=== PATIENT | female | born 1995 | race Two or more races ===

== ENCOUNTER 2024-10-16 18:49 | Emergency (ER) | payer MEDICAID, SELFPAY ==
[2024-10-16 19:29] VITALS: BP 158/78; PULSE 89; RESP 18; TEMP 36.9; O2SAT 96; BMI 42.3
--- NOTE | 2024-10-16 19:39 | EDNOTE_ITS ---
<Statement entered by Maggi Huizar MD - 10/23/24 17:50> As co-signing physician, I was present and available for consult prn. I concur with the plan and care as documented by the midlevel provider. ED OB Contraction Preg RMI/HPI General Chief complaint: Vaginal Bleeding Stated complaint: SPOTTING, CRAMPING, BACK PAIN @ 6WKS Time Seen by Provider: 10/16/24 19:27 Arrival date/time: 10/16/24 18:49 29-year-old female A4 approximately 6 weeks gestation reports with complaints of vaginal spotting that began this afternoon. Patient states she then developed lower back pain but denies any dysuria urinary urgency or frequency nausea vomiting fever or chills. Patient also complains of pelvic cramping. She denies taking any medication for symptoms Limitations: no limitations Related Data Home Medications ?Medication ?Instructions ?Recorded ?Confirmed Vitamin * 1 tab PO QDAY #0 tabs 09/06/17 03/04/18 Allergies Allergy/AdvReac Type Severity Reaction Status Date / Time No Known Allergies Allergy Unverified 10/16/24 18:50 Review of Systems Constitutional Constitutional: Denies chills, Denies fever(s) and Denies headache(s) ENT Ears, Nose, Mouth, and Throat: Denies dizziness and Denies headache(s) Genitourinary Genitourinary: Reports abnormal menses and Reports pelvic pain Musculoskeletal Musculoskeletal: Reports back pain and Denies myalgias Integumentary/Breasts Skin/Breast: Denies rash and Denies wounds Neurologic Neurologic: Denies dizziness and Denies headache(s) Hematologic/Lymphatic Hematologic/Lymphatic: Denies easy bleeding and Denies easy bruising Past Medical History Past Medical History CARDIAC: Negative Congestive Heart Failure RESPIRATORY: Negative Chronic Obstructive Pulmonary Disease (COPD) GENITOURINARY: Negative Renal Disease MUSCULOSKELETAL: Positive Fractures (broken arm age 5 or 6) ENDOCRINE: Negative Diabetes Mellitus Type 1 or Diabetes Mellitus Type 2 Surgical History SURGICAL: Negative Section Social History SMOKING STATUS: Never smoker ED Exam General Limitations: Present no limitations General appearance: Present alert and in no apparent distress Abdominal Exam Abdominal exam: Present soft and normal bowel sounds External exam: Present normal external exam; Absent erythema Speculum exam: Present normal speculum exam; Absent vaginal discharge, cervical discharge or vaginal bleeding Bimanual exam: Present normal bimanual exam; Absent cervical motion tenderness Extremities Exam Extremities exam: Present normal inspection and full ROM Back Exam Back exam: Present normal inspection and full ROM Neurological Exam Neurological exam: Present alert, oriented X3 and CN II-XII intact Psychiatric Psychiatric exam: Present normal affect and normal mood Skin Skin exam: Present warm, dry, intact and normal color Course Course Course Narrative: 29-year-old female A4 approximately 6 weeks gestation reports with complaints of vaginal spotting that began this afternoon. Urinalysis is negative for evidence of infection GC pending beta hCG of 4038 and uterine ultrasound indicative of a viable 5-week 5-day intrauterine gestation. Differential diagnosis includes implantation of bleeding versus threatened versus UTI. Patient is currently stable nontoxic-appearing with stable vital signs she will be discharged home advised to follow-up in 2 days with primary care provider for hCG repeat. Quality Measures none Orders Category Date Time Status Pelvic Exam X1 Care 10/16/24 19:38 Active US OB transvaginal Stat Exams 10/16/24 20:55 Completed Beta HCG,Quantitative Stat Lab 10/16/24 21:20 Completed Chlamydia/GC/TV - PCR Stat Lab 10/16/24 Ordered UA, C/S IF [Urinalysis, C/S if Indicated] Stat Lab 10/16/24 20:11 Completed Vital Signs Vital signs: Vital Signs Temperature 98.5 F 10/16/24 19:29 Pulse Rate 89 10/16/24 19:29 Respiratory Rate 18 10/16/24 19:29 Blood Pressure 158/78 H 10/16/24 19:29 Pulse Oximetry (%) 96 10/16/24 19:29 Oxygen Delivery Method Room Air 10/16/24 19:29 Vaginal Bleeding Patient data External records reviewed:: None Clinical information provided by:: patient Social determinants that could affect healthcare access:: none Patient has the following chronic illnesses:: none How is presenting disease/condition affected by chronic disease/condition?: no chronic disease Evaluation data The following diagnostics were reviewed and interpreted by me:: lab results and radiology exam(s) Lab and/or radiology exams considered but not ordered:: none Interpretation Summary: Viable intrauterine gestational Medications / Prescriptions Medications or Prescriptions considered but not ordered:: none Medication administrations:: none Consultations Consultation(s) initiated? (list below): No Diagnosis Vaginal Bleeding Differential Diagnosis: threatened , vaginal bleeding and other (Implantation of bleeding) Most likely diagnosis given after review of the tests above:: Bleeding during early Admission Indicated Admission indicated?: not indicated Admission Request Was there a request for admission?: No Disposition Plan Disposition Plan: Discharge Discharge Attestation Discharge Attestation: The patient and all family members were given an opportunity to ask questions and understood the discharge instructions. Discharge instructions specifically effects, indications for sooner follow up or return to the emergency department, and the expected course of current diagnosis. Patient condition: Stable Discharge Plan Plan Patient Disposition: HOME (Self Care) Prescriptions/Referrals Prescriptions/Med Rec: No Action Vitamin * 1 EACH tablet 1 tab PO QDAY Qty: 0 Referrals: Raciel Scott MD [Primary Care Provider] - In 1 week Problem List Clinical Impression: Bleeding in early Patient/Caregiver Discharge Instructions Education Materials: Bleeding During Early Additional Instructions: Follow-up with your [employer] in 2 days to have your hCG levels were taken. Print Language: Citizen Of [place] Stand Alone Forms: Hermila Award Info., Patient Portal Info Letter
--- NOTE | 2024-10-16 20:55 | XR_ITS ---
Examination: OB Transvaginal ultrasound of the pelvis, complete Technique: Transvaginal sonographic images pelvis performed using ochoa scale imaging Exam date and time: October 16, [id number] hrs. Indications: Early by history with vaginal bleeding and cramping beginning 3 days ago Findings: Uterus 8.7 x 4.1 x 5.3 cm pole 0.2 cm corresponds to 5 weeks 5 day gestational age Cardiac motion 93 BPM Right ovary 2.6 x 3.6 cm arterial flow Left ovary 2.8 x 2.3 cm arterial flow Impression: Viable intrauterine gestation 5 weeks 5 days
[2024-10-16 21:01] LABS: Collection Type, Urine Clean Catch
[2024-10-16 21:10] LABS: Bilirubin,Urine Negative (Negative); Blood,Urine Negative (Negative); Clarity,Urine Clear (Clear/Hazy); Color,Urine Lt-Yellow (Lt Yel-Yel); Culture Indicated,Urine Not Indicated; Glucose, Urine Negative (Negative); Ketones,Urine Negative (Negative); Leukocyte Esterase,Urine Negative (Negative); Nitrite,Urine Negative (Negative); Protein,Urine Negative (Neg - Trace); RBC,Urine 3 /hpf (0-3); Specific Gravity,Urine 1.025 (1.001-1.035); Squamous Epithelial Cell,Urine 2 /hpf (0-5); Urobilinogen,Urine Negative mg/dL (0.0-1.0); WBC,Urine < 1 /hpf (0-5)
[2024-10-16 22:08] LABS: Beta HCG,Quantitative 4038 mIU/mL (<5.0)
[2024-10-17 09:26] LABS: Chlamydia trachomatis PCR Negative (Not Detect); Neisseria Gonorrhoeae DNA PCR Negative (Not Detect); Trichomonas Negative (Negative)
== END 2024-10-16 23:10 | disposition home or self-care (01) ==
PROVIDERS: Physician Assistant; Emergency Provider Emergency Medicine; PCP Family Medicine
DX: O20.9 Hemorrhage in early pregnancy, unspecified (principal); Z3A.01 Less than 8 weeks gestation of pregnancy
CPT/HCPCS: 36415; 76817; 81001; 84702; 87491; 87591; 87661; 99284

== ENCOUNTER 2024-10-18 17:54 | Emergency (ER) | payer MEDICAID, SELFPAY ==
[2024-10-18 18:38] VITALS: BP 136/85; PULSE 74; RESP 18; TEMP 37.2; O2SAT 97; BMI 43.8
[2024-10-18 19:03] LABS: Basophils # (Auto) 0.1 Thou/mm3 (0.0-0.2); Basophils % (Auto) 1 % (0-2.5); Eosinophils # (Auto) 0.4 Thou/mm3 (0.0-0.5); Eosinophils % (Auto) 4 % (0-10); Hematocrit 35.4 % (36.0-46.0); Hemoglobin 11.8 g/dL (12.0-16.0); Immature Granulocytes % (Auto) 1 % (0-0); Immature Granulocytes Auto 0.07 Thou/mm3 (0.00-0.00); Lymphocytes # (Auto) 2.4 Thou/mm3 (1.0-4.8); Lymphocytes % (Auto) 21 % (10-50); Mean Corpuscular HGB Conc 33.3 g/dl (31.0-37.0); Mean Corpuscular Hemoglobin 25.9 pg (25.0-35.0); Mean Corpuscular Volume 78 fL (80-100); Monocytes # (Auto) 0.5 Thou/mm3 (0.0-0.8); Monocytes % (Auto) 5 % (0-12); Neutrophils # (Auto) 7.7 Thou/mm3 (1.8-7.7); Neutrophils % (Auto) 69 % (37-80); Nucleated Red Blood Cell % 0 /100 WBC (0); Platelet Count 305 Thou/mm3 (140-440); RDW Standard Deviation 40.6 fL (36.4-46.3); Red Blood Count 4.56 Miln/mm3 (4.00-5.20); White Blood Count 11.1 Thou/mm3 (3.6-11.0)
[2024-10-18 19:29] LABS: Alanine Aminotransferase 22 U/L (10-49); Albumin, Serum 4.7 gm/dL (3.5-5.0); Albumin/Globulin Ratio 1.7 (1.2-2.2); Alkaline Phosphatase 78 U/L (46-116); Anion Gap 7 (7-16); BUN/Creatinine Ratio 17 Ratio (12-20); Bilirubin,Total 0.4 mg/dL (0.3-1.2); Blood Urea Nitrogen 10 mg/dL (9-23); Calcium 9.4 mg/dL (8.3-10.6); Calcium (Corrected) 9.4 mg/dL (8.5-10.1); Carbon Dioxide 24.9 mMol/L (20.0-31.0); Chloride 102 mMol/L (98-107); Creatinine (Component) 0.6 mg/dL (0.6-1.3); Estimated Creatinine Clearance 191.7 mL/min (>60); Globulin 2.8 gm/dL (2.3-3.5); Glucose 89 mg/dL (74-106); Osmolality,Calculated 266 (275-295); Sodium 134 mMol/L (136-145); Total Protein 7.5 gm/dL (5.7-8.2); eGFR > 60 See Note
--- NOTE | 2024-10-18 19:40 | PD.EDVAGBL ---
ED OB Contraction Preg RMI/HPI General Chief complaint: Recheck/Abnormal Lab/Rx Stated complaint: BETA HCG TESTING. STATES TOLD TO COME BACK Time Seen by Provider: 10/18/24 18:45 Arrival date/time: 10/18/24 17:54 29F at approximately 6 weeks and with no significant PMH presents to ED with several days of vaginal bleeding and pelvic pain. Patient was here 2 days ago for this with normal IUP in [place]. Counseled to return in 2 days for repeat HCG testing. Limitations: no limitations Related Data Home Medications ?Medication ?Instructions ?Recorded ?Confirmed Vitamin * 1 tab PO QDAY #0 tabs 09/06/17 03/04/18 Allergies Allergy/AdvReac Type Severity Reaction Status Date / Time No Known Allergies Allergy Unverified 10/18/24 17:55 Review of Systems Review of Systems Systems Reviewed: All systems reviewed, normal except as documented Constitutional Constitutional: Reports system reviewed and no additional complaints, except as documented, Denies fever(s) and Denies headache(s) ENT Ears, Nose, Mouth, and Throat: Denies disequilibrium and Denies headache(s) Cardiovascular Cardiovascular: Reports system reviewed and no additional complaints, except as documented, Denies chest pain and Denies dyspnea Respiratory Respiratory: Reports system reviewed and no additional complaints, except as documented, Denies cough and Denies dyspnea Gastrointestinal Gastrointestinal: Reports system reviewed and no additional complaints, except as documented, Denies abdominal pain, Denies nausea and Denies vomiting Genitourinary Genitourinary: Reports as per HPI, Reports abnormal vaginal bleeding and Reports pelvic pain Neurologic Neurologic: Reports system reviewed and no additional complaints, except as documented, Denies confusion, Denies disequilibrium and Denies headache(s) Psychiatric Psychiatric: Denies confusion Past Medical History Past Medical History CARDIAC: Negative Congestive Heart Failure RESPIRATORY: Negative Chronic Obstructive Pulmonary Disease (COPD) GENITOURINARY: Negative Renal Disease MUSCULOSKELETAL: Positive Fractures (broken arm age 5 or 6) ENDOCRINE: Negative Diabetes Mellitus Type 1 or Diabetes Mellitus Type 2 Surgical History SURGICAL: Negative Section Social History SMOKING STATUS: Never smoker ED Exam General Limitations: Present no limitations General appearance: Present alert and in no apparent distress Head Head exam: Present atraumatic Eye Eye exam: Present normal appearance, PERRL and EOMI ENT ENT exam: Present normal exam, normal oropharynx and mucous membranes moist Neck Neck exam: Present normal inspection, full ROM and trachea midline Chest Chest inspection: Present normal inspection and symmetric chest wall rise Respiratory Respiratory exam: Present normal lung sounds bilaterally Cardiovascular Cardiovascular exam: Present regular rate, normal rhythm and normal heart sounds Abdominal Exam Abdominal exam: Present soft and normal bowel sounds Extremities Exam Extremities exam: Present normal inspection and full ROM Back Exam Back exam: Present normal inspection and full ROM Neurological Exam Neurological exam: Present alert, oriented X3 and CN II-XII intact Psychiatric Psychiatric exam: Present normal affect and normal mood Skin Skin exam: Present warm, dry, intact and normal color Course Quality Measures none Orders Category Date Time Status ABO/RH Type Stat Lab 10/18/24 18:50 Completed Beta HCG,Quantitative Stat Lab 10/18/24 18:50 Completed CBC Stat Lab 10/18/24 18:50 Completed CMP [Comprehensive Metabolic Panel] Stat Lab 10/18/24 18:50 Completed Vital Signs Vital signs: Vital Signs Temperature 98.9 F 10/18/24 18:38 Pulse Rate 74 10/18/24 18:38 Respiratory Rate 18 10/18/24 18:38 Blood Pressure 136/85 H 10/18/24 18:38 Pulse Oximetry (%) 97 10/18/24 18:38 Oxygen Delivery Method Room Air 10/18/24 18:38 O2 at 97% on RA and WNLs Vaginal Bleeding MDM Narrative MDM Narrative: 29F at approximately 6 weeks and with no significant PMH presents to ED with several days of vaginal bleeding and pelvic pain. Patient was here 2 days ago for this with normal IUP in [place]. Counseled to return in 2 days for repeat HCG testing. Physical exam reveals no pelvic tenderness. Patient is afebrile, calm, and alert. Minimal leukocytosis and anemia. Beta HCG doubled from 4k to 8k. O+. CMP unremarkable. Patient data External records reviewed:: [facility] previous records Clinical information provided by:: patient Social determinants that could affect healthcare access:: none Patient has the following chronic illnesses:: none How is presenting disease/condition affected by chronic disease/condition?: no chronic disease Evaluation data The following diagnostics were reviewed and interpreted by me:: lab results Lab and/or radiology exams considered but not ordered:: ordered Interpretation Summary: above Medications / Prescriptions Medications or Prescriptions considered but not ordered:: not ordered Medication administrations:: n/a Consultations Consultation(s) initiated? (list below): No Diagnosis Vaginal Bleeding Differential Diagnosis: missed , threatened , dysfunctional uterine bleeding, menometrorrhagia, incomplete , ectopic without intrauterine , vaginal bleeding and other (bleeding in early ) Most likely diagnosis given after review of the tests above:: bleeding in early Admission Indicated Admission indicated?: not indicated Admission Request Was there a request for admission?: No Disposition Plan Disposition Plan: Discharge Discharge Attestation Discharge Attestation: The patient and all family members were given an opportunity to ask questions and understood the discharge instructions. Discharge instructions specifically effects, indications for sooner follow up or return to the emergency department, and the expected course of current diagnosis. Patient condition: Stable Discharge Plan Plan Patient Disposition: HOME (Self Care) Disposition Comment: Stable Prescriptions/Referrals Prescriptions/Med Rec: No Action Vitamin * 1 EACH tablet 1 tab PO QDAY Qty: 0 Problem List Clinical Impression: Bleeding in early Patient/Caregiver Discharge Instructions Additional Instructions: Please follow-up with PCP/OBGYN within 24-48 hours and return immediately if symptoms worsen. Print Language: Romansh Stand Alone Forms: Patient Portal Info Letter ANNE/EMA Supervising Physician RICHARD Supervising Physician: Dr. Benitez
[2024-10-18 19:47] LABS: Aspartate Amino Transferase 14 U/L (0-34); Beta HCG,Quantitative 8040 mIU/mL (<5.0)
== END 2024-10-18 20:08 | disposition home or self-care (01) ==
LOC: SERX 20:42
PROVIDERS: Physician Assistant; Emergency Provider Emergency Medicine
DX: O20.9 Hemorrhage in early pregnancy, unspecified (principal); Z3A.01 Less than 8 weeks gestation of pregnancy
CPT/HCPCS: 36415; 80053; 84702; 85025; 86900; 86901; 99283

== ENCOUNTER 2025-04-18 08:18 | Outpatient (AMB) | payer MEDICAID, SELFPAY ==
--- NOTE | 2025-04-18 08:25 | AMB.OBINITIA ---
Vital Signs 04/18/25 08:41 Height 1.7 m Height Method Stated Weight 124.795 kg Weight Measurement Method Standing Scale BMI 43.0 BP 135/86 H Blood Pressure Source Automatic Cuff Blood Pressure Location Right Upper Arm Position Sitting Respiration 17 Pulse 75 Pulse Source Monitor Temp 97.8 F Temp Source Temporal Artery Scan Pulse Oximetry (%) 98 Oxygen Delivery Method Room Air Allergies/Home Meds Allergies & Medications Allergies No Known Allergies Allergy (Verified 04/18/25 08:43) Intake Visit Data Collection New Patient or Established: Established Patient (seen at [facility] within 3 years) Reason for Visit:: OB TRANSFER Seen by Clinical Staff ONLY (RN/MA): No Ventilation Equipment Tender Required: No Do You Feel Safe at Home: Yes Authorities Contacted: N/A PCP or OBGYN visit in last 3 months: No Hx Now: Yes Are you currently on any form of Control: No Pain Present Currently: No Pain Scale Used: Lee-Teresa/Numerical Pain scale:: 0 Smoking Status Smoking Status: Never smoker Questionnaires Covid-19 Vaccine Questionnaire Has patient been vacinated for Covid-19 Have you been vacinated for Covid-19: No PHQ-9 PHQ-2 Over the last 2 weeks, how often have you been bothered by any of the following problems? 1. Little interest or pleasure in doing things: not at all 2. Feeling down, depressed, or hopeless: not at all Total score: 0 PHQ-9 3. Trouble falling or staying asleep, or sleeping too much: Not at all 4. Feeling tired or having little energy: Not at all 5. Poor appetite or overeating: Not at all 6. Feeling bad about yourself - or that you are a failure or have let yourself or your family down: Not at all 7. Trouble concentrating on things, such as reading the newspaper or watching television: Not at all 8. Moving or speaking so slowly that other people could have noticed? - Or the opposite - being so fidgety or restless that you have been moving around a lot more than usual: not at all 9. Thoughts that you would be better off or of hurting yourself in some way: Not at all Total score: 0 If you checked off any problems, how difficult have these problems made it for you to do your work, take care of things at home, or get along with other people?: not difficult at all Source: Developed by Drs. Yoel Hussein, Kika Woodard, Cleveland Bello and colleagues, with an educational oscar from [employer]. Depression screen completed yes Social History Living Situation History Marital Status: Lives With: Family Housing: House Tobacco History Smoking Status: Never smoker Alcohol History Alcohol Intake: Former Alcohol Intake Frequency: holidays/special occasions only Domestic Abuse History Do You Feel Safe at Home: Yes History of Present Illness HPI Narrative 30 yo at 33 week transfer from [facility]. 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 last ,normal /child, this normal anatomy,LMP 08/31/24. EDC 06/07/25. sure dates. 01/08/24 sono: 17w. EDC 06/14/25. 02/08/25 sono: 21.25. all showed normal anatomy. good growth. EFW 58%. Biggest baby: 9-10. No PMH/elevated BMI, no social habit,no surgery. no PTL complaints, fetus active. no leaking or bleeding. O+,abs-,rpr;;nr, rub NI, hbsag-,HIV-, GC/CT-HBSAG-,HIV-, HC-, 1hr gtt wnl, AFP/NIPT/carrier screen-. TDAP given PRICK STITCHER: Past Medical History Past Medical History: No Hx Renal Disease, No Hx Diabetes Mellitus Type 1 and No Hx Diabetes Mellitus Type 2 OB Initial Visit OB Flowsheet OB Flowsheet Initial Weight: Not Recorded Date <del>?</del> EGA Weight BP Alb Glu CTX Pres Fundal ht FHR Mov Dilation Station Effacement Hx Notes Visit Note 04/18/25 <del>?</del> 31w 2d 124.795 kg 135/86 absent cephalic 33 145 active 30 yo . sure dates. EDC by LMP:06/07. elevated BMI, last mfm was 6/3,EFW: 4lb 1/2, normal anatomy. no PTL complaints, no VB,no leaking, report good FM+ 30 yo . sure dates. EDC by LMP:06/07. elevated BMI, last mfm was 6/3,EFW: 4lb 11/16, normal anatomy. no PTL complaints, no VB,no leaking, report good FM+, TDAP given review fkv bid, increase fluid, discuss PTL precaution, schedule week NST/BPP. call for sono results NV review fkc bid, increase fluid, discuss PTL precaution, schedule week NST/BPP. call for sono results NV Menstrual History Menstrual reliability: definite Flow: normal Menstrual regularity: regular Monthly: Yes Age at menarche: 11 On control pills at conception: No Date of positive home test: 09/26/24 Associated symptoms (LMP): Reports fatigue and bloating OB History : 6 Para: 1 Hx # Pregnancies: 0 Hx Total # of Abortions (Spontaneous & Elective): 4 # of Living Children: 1 Delivery History 1st : Child's name: HANNAH ISABEL date: 03/05/18 sex: male Gestational age at delivery (weeks): 40 Delivery type: vaginal weight (lbs): 4082.331 g weight (oz): 10 kg History of depression before or after : No Infection History & Risk Evaluation History of STDs: none HIV risk evaluation: low risk Hepatitis B risk evaluation: low risk Patient or partner has history of Genital Herpes: No Varicella/chicken pox status: immunized Genetic Screening & History Genetic Screening/Teratology Counseling - Includes patient, baby's father, or anyone in either family with: 1. Patient's age 35 years or older as of estimated date of delivery: No 2. Thalassemia (Tunisian, Eritrean, Mediterranean, or Background); MCV less than 80: No 3. Neural Tube Defect (Meningomyelocele, Spina Bifida, or Anencephaly): No 4. Congenital Heart Defect: No 5. Down Syndrome: No 6. Juan Daniel-Sachs (Ashkenazi Buddhist, Cajun, Czech Isabella): No 7. José Miguel Disease (Ashkenazi Buddhist): No 8. Familial Dysautonomia (Ashkenazi Buddhist): No 9. Sickle Cell Disease or Trait (): No 10. Hemophilia or other blood disorders: No 11. Muscular Dystrophy: No 12. Cystic Fibrosis: No 13. Robert's Chorea: No 14. Mental Retardation/Autism: Yes (BABYS FATHER HAS FAMILY WITH ADHD, AND ADD) 15. Other inherited genetic or chromosomal disorder: No 16. Maternal Metabolic Disorder (EG,TYPE 1 Diabetes, PKU): No 17. Patient or baby's father had a child with defects not listed above: No 18. Recurrent loss or a stillbirth: No 19. Medications (including supplements, vitamins, herbs or otc drugs)/illicit/recreational drugs/alcohol since last menstrual period: Yes ( VITAMINS) 20. Any other: No Infection History 1. Live with someone with TB or exposed to TB: No 2. Rash or viral illness since last menstrual period: No 3. Hepatitis B,C: No Other (see comments) Source: [employer] Review of Systems Review of Systems Systems Reviewed: All systems reviewed, normal except as documented Constitutional Constitutional: Reports fatigue Gastrointestinal Gastrointestinal: Reports bloating Endocrine Endocrine: Reports fatigue Exam General Limitations: no limitations General Appearance: alert, in no apparent distress, comfortable, cooperative, healthy appearing, well developed and well groomed Head Head exam: atraumatic, normocephalic and normal inspection Chest Chest inspection: Present normal inspection and symmetric chest wall rise Resp Respiratory exam: Present normal lung sounds bilaterally Card Cardiovascular exam: Present regular rate, normal rhythm and normal heart sounds Abdominal Abdominal exam: Present soft and normal bowel sounds Psych Psychiatric exam: Present normal affect and normal mood Office Procedures OB Clinic LOC & Office Proc's Nursing/Assessment Patient Status: Established Patient OB Clinic Nursing Assessment: Medication Reconciliation, Update PMH in EMR and Vital Signs OB Clinic Coordination of Care: Complex Care and Chronic Disease 1-5, Consent,records obtained, informed consent, Education Simp Pt/Fam, Lab and Imaging orders and Staff clarify orders Special Needs: Heart tones Established Patient Charge Established Patient Point Assignment: 130 Established Patient Point Charge: EP Level 4 (120-155) Assessment & Plan Diagnosis / Problem List (1) Encounter for supervision of normal in multigravida in third trimester: Status: Acute (2) BMI (body mass index) 20.0-29.9: Status: Acute Plan discuss diet and weight gain, NST/BPP weekly, scheduled. discuss PTL precaution, increase fluid. FKC bid, continue PNV and iron, walk 40 minute daily. rtc 2 week OBC Additional Plan Follow Up: 2 Weeks (OBC)
[2025-04-18 08:41] VITALS: BP 135/86; PULSE 75; RESP 17; TEMP 36.6; O2SAT 98; BMI 43.0
== END 2025-04-18 08:57 | disposition home or self-care (01) ==
LOC: HODSOBC 08:18
PROVIDERS: Supervising Provider Obstetrics & Gynecology; Visit Provider Advanced Practice Midwife
DX: Z34.83 Encounter for supervision of other normal pregnancy, third trimester (principal); Z3A.31 31 weeks gestation of pregnancy
CPT/HCPCS: 99214; G0463

== ENCOUNTER 2025-05-02 10:56 | Outpatient (AMB) | payer MEDICAID, SELFPAY ==
[2025-05-02 11:27] VITALS: BP 132/84; PULSE 76; RESP 17; TEMP 36.6; O2SAT 97; BMI 43.3
--- NOTE | 2025-05-02 11:27 | OBCLNT_ITS ---
Vital Signs 05/02/25 11:27 Height 1.7 m Height Method Stated Weight 125.305 kg Weight Measurement Method Standing Scale BMI 43.3 BP 132/84 H Blood Pressure Source Automatic Cuff Blood Pressure Location Right Upper Arm Position Sitting Respiration 17 Pulse 76 Pulse Source Monitor Temp 97.8 F Temp Source Temporal Artery Scan Pulse Oximetry (%) 97 Oxygen Delivery Method Room Air Allergies/Home Meds Allergies & Medications Allergies No Known Allergies Allergy (Verified 05/02/25 11:28) Medication Reconciliation No Known Home Medications 05/02/25 [History Confirmed 05/02/25] Intake Visit Data Collection New Patient or Established: Established Patient (seen at [facility] within 3 years) Reason for Visit:: OBC Do You Feel Safe at Home: Yes Authorities Contacted: N/A PCP or OBGYN visit in last 3 months: Yes Smoking Status Smoking Status: Never smoker Questionnaires Covid-19 Vaccine Questionnaire Has patient been vacinated for Covid-19 Have you been vacinated for Covid-19: No PHQ-9 PHQ-2 Over the last 2 weeks, how often have you been bothered by any of the following problems? 1. Little interest or pleasure in doing things: not at all 2. Feeling down, depressed, or hopeless: not at all Total score: 0 PHQ-9 3. Trouble falling or staying asleep, or sleeping too much: Not at all 4. Feeling tired or having little energy: Not at all 5. Poor appetite or overeating: Not at all 6. Feeling bad about yourself - or that you are a failure or have let yourself or your family down: Not at all 7. Trouble concentrating on things, such as reading the newspaper or watching television: Not at all 8. Moving or speaking so slowly that other people could have noticed? - Or the opposite - being so fidgety or restless that you have been moving around a lot more than usual: not at all 9. Thoughts that you would be better off or of hurting yourself in some way: Not at all Total score: 0 If you checked off any problems, how difficult have these problems made it for you to do your work, take care of things at home, or get along with other people?: not difficult at all Source: Developed by Drs. Yoel Hussein, Kika BCleveland White and colleagues, with an educational oscar from [employer]. 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 sure dates. EDC by LMP:06/07. elevated BMI, last mfm was 6/3,EFW: 4lb 1/2, normal anatomy. no PTL complaints, no VB,no leaking, report good FM+ 30 yo . sure dates. EDC by LMP:06/07. elevated BMI, last mfm was 6/3,EFW: 4lb 1/2, normal anatomy. no PTL complaints, no VB,no leaking, report good FM+, TDAP given review fkv bid, increase fluid, discuss PTL precaution, schedule week NST/BPP. call for sono results NV review fkc bid, increase flu id, discuss PTL precaution, schedule week NST/BPP. call for sono results NV 05/02/25 -?-?-?-?-?-?-?-?-?-?-?-?- 33w 2d 125.305 kg 132/84 absent cephalic 33 14 5 active fetus active, no PTL complaints. denies LOF/Bleeding,UC. MFM f/u 05/29 keep appt with mfm for f/u, week NST/BPP pending, fkc bid, gbs nv, discuss ptl precaution, rtc 2 week obc ALMAS Calculator Estimated Delivery Date Method Current WG Current Estimate 06/18/25 Ultrasound #1 33w 2d Other Estimates 06/07/25 LMP (Certain) 34w 6d Notes Visit Date: 04/18/25 Last Updated by: Lesa Kay, ROSMERY 30 yo , lmp 08/31/24. edc 06/07/25. sure date(final). sono 01/08/25: 17w: 06/14/25. sono 02/08/25: 21.5 EDC 06/16/25. MFM sono: WNL. EFW: 58%, O+,abs- ,rpr::nr, rub:NI, hbsag-hiv-,hc-, gc/ct-, AFP/NIPT/carrier screen-, 1hr gtt:WNL, A1:5.3, /: sched NST/BPP Office Procedures OB Clinic LOC & Office Proc's Nursing/Assessment Patient Status: Established Patient OB Clinic Nursing Assessment: Medication Reconciliation, Update PMH in EMR and Vital Signs OB Clinic Coordination of Care: Complex Care and Chronic Disease 1-5, Consent,records obtained, informed consent, Education Simp Pt/Fam and Staff clarify orders Special Needs: Heart tones Established Patient Charge Established Patient Point Assignment: 115 Established Patient Point Charge: EP Level 3 (80-115) Assessment & Plan Diagnosis / Problem List (1) Encounter for supervision of high risk in third trimester, antepartum: Status: Acute (2) BMI (body mass index) 20.0-29.9: Status: Acute Plan discuss ptl precaution, fkc bid, wk NST/BPP pending. f/u MFM 05/29, hydrate. discuss ptl precaution, rtc 2 week GBS/OBC Additional Plan Follow Up: 2 Weeks (obc)
== END 2025-05-02 11:55 | disposition home or self-care (01) ==
LOC: HODSOBC 10:56
PROVIDERS: PCP Advanced Practice Midwife; Referring Provider Advanced Practice Midwife; Supervising Provider Advanced Practice Midwife; Visit Provider Advanced Practice Midwife
DX: O09.93 Supervision of high risk pregnancy, unspecified, third trimester (principal); Z3A.33 33 weeks gestation of pregnancy
CPT/HCPCS: 99213; G0463

== ENCOUNTER 2025-05-28 08:02 | Outpatient (RCR) | payer MEDICAID, SELFPAY ==
--- NOTE | 2025-05-14 08:26 | XR_ITS ---
Examination: Biophysical profile, ultrasound Date and time of exam: May 14, 2025 0837 hours INDICATIONS: Encounter for supervision of normal Technique: Multiple transabdominal sonographic images of the pelvis abdomen obtained. Attention is directed to the breathing movement, gross body movement, amniotic fluid volume and tone. Findings: Amniotic fluid index 10.8 cm Total biophysical profile is 8 of 8. breathing movement is 2. Gross body movement is 2. tone is 2. Qualitative amniotic fluid volume is 2 Impression: Biophysical profile is 8 of 8.
[2025-05-14 09:03] VITALS: BP 138/80; PULSE 80; RESP 16; TEMP 36.7
--- NOTE | 2025-05-17 08:11 | XR_ITS ---
Examination: Biophysical profile, ultrasound Date and time of exam: May 17, 2025 0826 hours INDICATIONS: Encounter for supervision of normal Technique: Multiple transabdominal sonographic images of the pelvis abdomen obtained. Attention is directed to the breathing movement, gross body movement, amniotic fluid volume and tone. Findings: Amniotic fluid index 8.0 cm Total biophysical profile is 8 of 8. breathing movement is 2. Gross body movement is 2. tone is 2. Qualitative amniotic fluid volume is 2 Impression: Biophysical profile is 8 of 8.
[2025-05-17 09:17] VITALS: BP 132/79; PULSE 84; RESP 16; TEMP 36.7
--- NOTE | 2025-05-21 08:13 | XR_ITS ---
Examination: Biophysical profile, ultrasound Date and time of exam: May 21, 2025 0826 hours INDICATIONS: Encounter for supervision of normal in third trimester Technique: Multiple transabdominal sonographic images of the pelvis abdomen obtained. Attention is directed to the breathing movement, gross body movement, amniotic fluid volume and tone. Findings: Amniotic fluid index 8.1 cm Total biophysical profile is 8 of 8. breathing movement is 2. Gross body movement is 2. tone is 2. Qualitative amniotic fluid volume is 2 Impression: Biophysical profile is 8 of 8.
[2025-05-21 08:52] VITALS: BP 130/79; PULSE 88; RESP 16; TEMP 36.7
--- NOTE | 2025-05-24 08:20 | XR_ITS ---
Examination: Biophysical profile, ultrasound Date and time of exam: May 24, 2025 0827 hours INDICATIONS: Maternal obesity, encounter for supervision of normal in multigravida Technique: Multiple transabdominal sonographic images of the pelvis abdomen obtained. Attention is directed to the breathing movement, gross body movement, amniotic fluid volume and tone. Findings: Amniotic fluid index 8.9 cm Total biophysical profile is 8 of 8. breathing movement is 2. Gross body movement is 2. tone is 2. Qualitative amniotic fluid volume is 2 Impression: Biophysical profile is 8 of 8.
[2025-05-24 09:08] VITALS: BP 124/79; PULSE 75; RESP 16; TEMP 36.8
--- NOTE | 2025-05-28 08:11 | XR_ITS ---
Examination: Biophysical profile, ultrasound Date and time of exam: May 28, 2025 0817 hours INDICATIONS: Maternal obesity complicating Technique: Multiple transabdominal sonographic images of the pelvis abdomen obtained. Attention is directed to the breathing movement, gross body movement, amniotic fluid volume and tone. Findings: Amniotic fluid index 6.7 cm Total biophysical profile is 8 of 8. breathing movement is 2. Gross body movement is 2. tone is 2. Qualitative amniotic fluid volume is 2 Impression: Biophysical profile is 8 of 8.
[2025-05-28 08:37] VITALS: BP 134/73; PULSE 80; RESP 16
[2025-05-28 10:07] LABS: Collection Type, Urine Clean Catch
[2025-05-28 10:16] LABS: Basophils # (Auto) 0.0 Thou/mm3 (0.0-0.2); Basophils % (Auto) 0 % (0-2.5); Eosinophils # (Auto) 0.2 Thou/mm3 (0.0-0.5); Eosinophils % (Auto) 2 % (0-10); Hematocrit 33.7 % (36.0-46.0); Hemoglobin 11.4 g/dL (12.0-16.0); Immature Granulocytes Auto 0.04 Thou/mm3 (0.00-0.00); Lymphocytes # (Auto) 2.2 Thou/mm3 (1.0-4.8); Lymphocytes % (Auto) 24 % (10-50); Mean Corpuscular HGB Conc 33.8 g/dl (31.0-37.0); Mean Corpuscular Hemoglobin 24.7 pg (25.0-35.0); Mean Corpuscular Volume 73 fL (80-100); Monocytes # (Auto) 0.5 Thou/mm3 (0.0-0.8); Monocytes % (Auto) 5 % (0-12); Neutrophils # (Auto) 6.2 Thou/mm3 (1.8-7.7); Neutrophils % (Auto) 68 % (37-80); Nucleated Red Blood Cell # 0.00 Thou/mm3 (0.00-0.00); Nucleated Red Blood Cell % 0 /100 WBC (0); Platelet Count 250 Thou/mm3 (140-440); RDW Standard Deviation 38.1 fL (36.4-46.3); Red Blood Count 4.62 Miln/mm3 (4.00-5.20); White Blood Count 9.2 Thou/mm3 (3.6-11.0)
[2025-05-28 10:35] LABS: INR 1.0 (0.9-1.3); Partial Thromboplastin Time 28.8 Seconds (22.0-36.0); Prothrombin Time 10.8 Seconds (9.0-12.2)
[2025-05-28 10:43] LABS: Alanine Aminotransferase 9 U/L (10-49); Albumin, Serum 3.8 gm/dL (3.5-5.0); Albumin/Globulin Ratio 1.4 (1.2-2.2); Alkaline Phosphatase 164 U/L (46-116); Anion Gap 12 (7-16); Aspartate Amino Transferase 21 U/L (0-34); BUN/Creatinine Ratio 10 Ratio (12-20); Bilirubin,Total 0.5 mg/dL (0.3-1.2); Blood Urea Nitrogen 6 mg/dL (9-23); Calcium 9.2 mg/dL (8.3-10.6); Calcium (Corrected) 9.4 mg/dL (8.5-10.1); Carbon Dioxide 20.3 mMol/L (20.0-31.0); Chloride 105 mMol/L (98-107); Creatinine (Component) 0.6 mg/dL (0.6-1.3); Globulin 2.7 gm/dL (2.3-3.5); Glucose 92 mg/dL (74-106); LDH (Lactate Dehydrogenase) 199 U/L (120-246); Osmolality,Calculated 271 (275-295); Potassium 3.7 mMol/L (3.4-5.1); Sodium 137 mMol/L (136-145); Total Protein 6.5 gm/dL (5.7-8.2); Uric Acid 6.2 mg/dL (3.1-7.8); eGFR > 60 See Note
[2025-05-28 10:59] LABS: Fibrinogen 624 mg/dL (175-375)
[2025-05-28 11:58] LABS: Bacteria,Urine 1+; Bilirubin,Urine Negative (Negative); Blood,Urine Negative (Negative); Clarity,Urine Clear (Clear/Hazy); Color,Urine Colorless (Lt Yel-Yel); Glucose, Urine Negative (Negative); Ketones,Urine Negative (Negative); Leukocyte Esterase,Urine Negative (Negative); Nitrite,Urine Negative (Negative); PH,Urine 6.0 (5.0-7.0); Protein,Urine Negative (Neg - Trace); RBC,Urine 1 /hpf (0-3); Specific Gravity,Urine 1.003 (1.001-1.035); Squamous Epithelial Cell,Urine < 1 /hpf (0-5); Urobilinogen,Urine Negative mg/dL (0.0-1.0); WBC,Urine 1 /hpf (0-5)
== END 2025-05-28 23:59 | disposition home or self-care (01) ==
LOC: S4S1 08:02
PROVIDERS: Referring Provider Advanced Practice Midwife; Visit Provider Advanced Practice Midwife
DX: O09.93 Supervision of high risk pregnancy, unspecified, third trimester (principal); Z3A.38 38 weeks gestation of pregnancy
CPT/HCPCS: 36415; 59025; 76819; 80053; 81001; 83615; 84550; 85025; 85384; 85610; 85730

== ENCOUNTER 2025-05-28 10:05 | Outpatient (AMB) | payer MEDICAID, SELFPAY ==
[2025-05-28 10:23] VITALS: BP 143/89; PULSE 70; RESP 17; TEMP 36.4; O2SAT 94; BMI 43.9
--- NOTE | 2025-05-28 10:23 | OBCLNT_ITS ---
Vital Signs 05/28/25 10:23 Height 1.7 m Height Method Measured Weight 127.176 kg Weight Measurement Method Standing Scale BMI 43.9 BP 143/89 H Blood Pressure Source Automatic Cuff Blood Pressure Location Right Upper Arm Position Sitting Respiration 17 Pulse 70 Pulse Source Monitor Temp 97.6 F Temp Source Temporal Artery Scan Pulse Oximetry (%) 94 L Oxygen Delivery Method Room Air Allergies/Home Meds Allergies & Medications Allergies No Known Allergies Allergy (Verified 05/28/25 10:24) Medication Reconciliation No Known Home Medications 05/02/25 [History Confirmed 05/28/25] Intake Visit Data Collection New Patient or Established: Established Patient (seen at [facility] within 3 years) Reason for Visit:: OBC Consent obtained for Telemed Visit: No Seen by Clinical Staff ONLY (RN/MA): No 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 1. Little interest or pleasure in doing things: not at all PHQ-9 8. Moving or speaking so slowly that other people could have noticed? - Or the opposite - being so fidgety or restless that you have been moving around a lot more than usual: not at all Source: Developed by Drs. Yoel Hussein, Kika Woodard, Cleveland Bello and colleagues, with an educational oscar from [employer]. 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 sure dates. EDC by LMP:06/07. elevated BMI, last mfm was 6/3,EFW: 4lb 1/2, normal anatomy. no PTL complaints, no VB,no leaking, report good FM+ 30 yo . sure dates. EDC by LMP:06/07. elevated BMI, last mfm was 6/3,EFW: 4lb 1/2, normal anatomy. no PTL complaints, no VB,no leaking, report good FM+, TDAP given review fkv bid, increase fluid, discuss PTL precaution, schedule week NST/BPP. call for sono results NV review fkc bid, increase flu id, discuss PTL precaution, schedule week NST/BPP. call for sono results NV 05/02/25 -?-?-?-?-?-?-?-?-?-?-?-?- 33w 2d 125.305 kg 132/84 absent cephalic 33 14 5 active fetus active, no PTL complaints. denies LOF/Bleeding,UC. MFM f/u 05/29 keep appt with mfm for f/u, week NST/BPP pending, fkc bid, gbs nv, discuss ptl precaution, rtc 2 week obc 05/28/25 -?-?-?-?-?-?-?-?-?-?-?-?- 37w 0d 127.176 kg 143/89 occasional cephalic 37 145 active 1 -3 50 denies PIH s/s, reports good fm, sve: soft/1/L/post, occ uc, no vb,no LOF. BPP 06/22 today, NST reactive. discuss labor pr ecaution, fkc bid. review PIH s/s and precaution. fkc bid. discuss danger s/s. consult with OB re BP, to [facility] 05/29, repeat BP, IOL if BP are elevated. discuss with patient. OBC 1 week ALMAS Calculator Estimated Delivery Date Method Current WG Current Estimate 06/18/25 Ultrasound #1 37w 0d Other Estimates 06/07/25 LMP (Certain) 38w 4d Notes Visit Date: 04/18/25 Last Updated by: Lesa Kay, ROSMERY 30 yo , lmp 08/31/24. edc 06/07/25. sure date(final). sono 01/08/25: 17w: 06/14/25. sono 02/08/25: 21.5 EDC 06/16/25. MFM sono: WNL. EFW: 58%, O+,abs-,rpr::nr, rub:NI, hbsag-hiv-,hc-, gc/ct-, AFP/NIPT/carrier screen-, 1hr gtt:WNL, A1:5.3, 6/: sched NST/BPP Office Procedures OB Clinic LOC & Office Proc's Nursing/Assessment Patient Status: Established Patient OB Clinic Nursing Assessment: Medication Reconciliation, Update PMH in EMR and Vital Signs OB Clinic Coordination of Care: Complex Care and Chronic Disease 1-5, Consent,records obtained, informed consent, Education Simp Pt/Fam and 4+ Authorizations needed Special Needs: Heart tones Established Patient Charge Established Patient Point Assignment: 130 Established Patient Point Charge: EP Level 4 (120-155) Assessment & Plan Diagnosis / Problem List (1) Encounter for supervision of high risk in third trimester, antepartum: Status: Acute (2) BMI (body mass index) 20.0-29.9: Status: Acute Plan discuss PIH s/s and precaution, discuss danger s/s. discuss fkc bid, hydrate and discuss labor precaution, consult with OB, to [facility] in am 7/15 for BP check, IOL if BP remain elevated Additional Plan Follow Up: 1 Week (obc)
== END 2025-05-28 11:06 | disposition home or self-care (01) ==
LOC: HODSOBC 10:05
PROVIDERS: PCP Advanced Practice Midwife; Referring Provider Advanced Practice Midwife; Supervising Provider Advanced Practice Midwife; Visit Provider Advanced Practice Midwife
DX: O09.93 Supervision of high risk pregnancy, unspecified, third trimester (principal); Z3A.37 37 weeks gestation of pregnancy
CPT/HCPCS: 99214; G0463

== ENCOUNTER 2025-05-29 10:19 | Inpatient (IN) | payer MEDICAID, SELFPAY ==
[2025-05-29] VITALS (66 sets, daily range): BP systolic 114–166; BP diastolic 56–94; PULSE 62–96; RESP 14–97; TEMP 36.9–37.1; O2SAT 96–99; BMI 43.9; BMI 46.5
--- NOTE | 2025-05-29 10:35 | XR_ITS ---
Examination: Complete OB ultrasound greater than 14 weeks Date and time of exam: May 29, 2025 1137 hours INDICATIONS: Diagnosis elevated blood pressure 2 days Findings: Viable intrauterine single fetus with single amniotic sac presentation cephalic spine anterior Cardiac motion 150 BPM Placenta fundal posterior grade 2 Umbilical cord insertion seen Amniotic fluid index 7.5 cm Mild left hydronephrosis Cervix 3.3 cm Ovaries obscured by bowel gas. Composite estimated gestational age based on BPD, head circumference, abdominal circumference, femur length is 37 weeks 2 days Estimated weight 3052 g. Survey of intracranial anatomy, spinal anatomy,, four-chamber heart performed with no abnormalities identified. Impression: Viable intrauterine gestation cephalic presentation.
[2025-05-29 11:19] LABS: Collection Type, Urine Clean Catch
[2025-05-29 11:32] LABS: Basophils # (Auto) 0.0 Thou/mm3 (0.0-0.2); Basophils % (Auto) 1 % (0-2.5); Eosinophils # (Auto) 0.1 Thou/mm3 (0.0-0.5); Eosinophils % (Auto) 2 % (0-10); Hematocrit 31.7 % (36.0-46.0); Hemoglobin 10.8 g/dL (12.0-16.0); Immature Granulocytes Auto 0.03 Thou/mm3 (0.00-0.00); Lymphocytes # (Auto) 2.0 Thou/mm3 (1.0-4.8); Lymphocytes % (Auto) 26 % (10-50); Mean Corpuscular HGB Conc 34.1 g/dl (31.0-37.0); Mean Corpuscular Hemoglobin 24.9 pg (25.0-35.0); Mean Corpuscular Volume 73 fL (80-100); Monocytes # (Auto) 0.3 Thou/mm3 (0.0-0.8); Monocytes % (Auto) 4 % (0-12); Neutrophils # (Auto) 5.0 Thou/mm3 (1.8-7.7); Neutrophils % (Auto) 67 % (37-80); Nucleated Red Blood Cell # 0.00 Thou/mm3 (0.00-0.00); Nucleated Red Blood Cell % 0 /100 WBC (0); Platelet Count 221 Thou/mm3 (140-440); RDW Standard Deviation 37.6 fL (36.4-46.3); Red Blood Count 4.34 Miln/mm3 (4.00-5.20); White Blood Count 7.5 Thou/mm3 (3.6-11.0)
[2025-05-29 11:54] LABS: Fibrinogen 567 mg/dL (175-375); INR 1.0 (0.9-1.3); Partial Thromboplastin Time 28.2 Seconds (22.0-36.0); Prothrombin Time 11.1 Seconds (9.0-12.2)
[2025-05-29 11:56] LABS: Alanine Aminotransferase 8 U/L (10-49); Albumin, Serum 3.5 gm/dL (3.5-5.0); Albumin/Globulin Ratio 1.4 (1.2-2.2); Alkaline Phosphatase 157 U/L (46-116); Anion Gap 12 (7-16); Aspartate Amino Transferase 17 U/L (0-34); BUN/Creatinine Ratio 10 Ratio (12-20); Bilirubin,Total 0.5 mg/dL (0.3-1.2); Blood Urea Nitrogen 6 mg/dL (9-23); Calcium 8.6 mg/dL (8.3-10.6); Calcium (Corrected) 9.0 mg/dL (8.5-10.1); Carbon Dioxide 20.2 mMol/L (20.0-31.0); Chloride 106 mMol/L (98-107); Creatinine (Component) 0.6 mg/dL (0.6-1.3); Estimated Creatinine Clearance 190.3 mL/min (>60); Globulin 2.5 gm/dL (2.3-3.5); Glucose 154 mg/dL (74-106); LDH (Lactate Dehydrogenase) 168 U/L (120-246); Osmolality,Calculated 276 (275-295); Potassium 3.6 mMol/L (3.4-5.1); Sodium 138 mMol/L (136-145); Total Protein 6.0 gm/dL (5.7-8.2); Uric Acid 6.9 mg/dL (3.1-7.8); eGFR > 60 See Note
[2025-05-29 12:08] LABS: Bacteria,Urine 3+; Bilirubin,Urine Negative (Negative); Blood,Urine Negative (Negative); Color,Urine Yellow (Lt Yel-Yel); Glucose, Urine Negative (Negative); Hyaline Casts,Urine < 1 /hpf (0-1); Ketones,Urine Trace (Negative); Leukocyte Esterase,Urine Positive (Negative); Nitrite,Urine Negative (Negative); PH,Urine 5.5 (5.0-7.0); Protein,Urine 1+ (Neg - Trace); RBC,Urine 3 /hpf (0-3); Specific Gravity,Urine 1.023 (1.001-1.035); Squamous Epithelial Cell,Urine 10 /hpf (0-5); Urobilinogen,Urine Negative mg/dL (0.0-1.0); WBC,Urine 8 /hpf (0-5)
[2025-05-29 12:41] LABS: Clarity,Urine Hazy (Clear/Hazy)
[2025-05-29 12:57] LABS: Creatinine,Random Urine 232 mg/dL (30-125); Protein Total, Random Urine 55 mg/dL (1-14)
[2025-05-29] MEDS: RINGERS LACTATED 1000 ML 1,000 ML 100 ML IV (14:00)
[2025-05-29] MEDS: LABETALOL 100 MG TABLET 200 MG PO ×2 (14:15→22:00)
[2025-05-29 15:39] LABS: Syphilis Nonreactive (Nonreactive)
[2025-05-30] VITALS (172 sets, daily range): BP systolic 107–198; BP diastolic 58–102; PULSE 56–126; RESP 16–18; TEMP 36.4–37.1; O2SAT 73–100
[2025-05-30] MEDS: LABETALOL 100 MG TABLET 200 MG PO ×3 (05:24→22:33)
--- NOTE | 2025-05-30 08:27 | PD.LDPN ---
Documentation for date of: 05/30/25 OB Labor Progress Note Pain Control Pain control: tolerating well Pelvic Exam Dilation (cm): 2/mid/soft Effacement (%): 50 station: -2 Amniotic membrane status: Intact Contractions Monitor mode: External Contraction frequency: 4-6 Contraction phase: Resting Contraction intensity: Mild Status status: Category l
--- NOTE | 2025-05-30 08:28 | PD.LDHP ---
Documentation for date of: 05/30/25 OB Labor/Induct. HPI History of Present Illness Chief complaint: IOL : 6 Para: 1 Term pregnancies: 1 pregnancies: 0 Living children: 1 History of Abortions: Spontaneous and Elective: 4 History of Vaginal deliveries: 1 History of sections: No History of : No Date of last menstrual period: 08/31/24 ALMAS: 06/17/25 Gestational Age (weeks): 37 Gestational Age (days): 2 Gestational age based on last menstrual period: 38 History of present illness: 30-year-old 6 para 1 admit to labor and delivery for induction of labor because of gestational hypertension. Blood pressures have been consistently mild range for the last 2 days. Highest readings 160s over 80. Patient denies PIH signs and symptoms. She has been followed initially at Dr. Ya's office for care. Her first visit at Dr. Ya's office was at 10 weeks. And patient has a history of a 9 pound 6 ounce baby the first 1. She is O+, antibody screen negative, RPR nonreactive, rubella nonimmune, hepatitis B negative, hep C negative, HIV negative, GC and Chlamydia were negative. Normal 1 hour GTT and her A1c was 5.3. NIPT and carrier screens all negative. And her GBS is negative denies leaking or bleeding at this time History of Present Dating criteria: LMP confirmed by 1st trimester US Adequate Care: Yes Ultrasounds: normal 1st trimester US and normal mid trimester US Obstetrical complications: gestational hypertension Medical complications: none Labs Labs: Negative: RPR, Hepatitis B, Rubella Titre, HIV, Chlamydia and Gonorrhea and Unknown: Herpes Type 1, Herpes Type 2, Group Beta Strep and Covid-19 Review of Systems Review of Systems Systems Reviewed: All systems reviewed, normal except as documented Past Medical History Surgical History SURGICAL: Negative Section Meds Home Medications and Allergies Home Medications ?Medication ?Instructions ?Recorded ?Confirmed ?Type No Known Home Medications 05/02/25 05/29/25 History Allergies Allergy/AdvReac Type Severity Reaction Status Date / Time No Known Allergies Allergy Verified 05/29/25 10:33 OB Exam Physical Exam Vital signs: Temp Pulse Resp BP Pulse Ox O2 Del Method 98.2 F 60 18 131/65 H 98 Room Air 05/30/25 07:00 05/30/25 07:48 07/16/25 07:00 05/30/25 07:48 05/29/25 13:16 05/29/25 10:26 Narrative: Alert and oriented. Normal heart rate and rhythm. Lungs clear no wheezes. Gravid abdomen. Gynecoid pelvis. Estimated weight 8 pounds. Vaginal exam on admission was long 1 and posterior. Medium. -3. Vertex. Bag water intact. heart rate category 1 with accelerations and moderate variability and irregular contractions Detailed Labor and Delivery Exam Dilation (cm): 1 Effacement (%): thick Cervix position: posterior station: -3 Consistency: medium Presentation: Vertex Cervical ripeness score: 2 Membranes: intact Baseline heart rate: 145 monitor decelerations: None Contraction frequency (min): irreg Contraction duration (sec): mild Tachysystole: No Contraction intensity: Mild OB Results Labs 05/29/25 11:02 05/29/25 11:02 Labs: Short CBC 05/29/25 Range/Units 11:02 WBC 7.5 (3.6-11.0) Thou/mm3 Hgb 10.8 L (12.0-16.0) g/dL Hct 31.7 L (36.0-46.0) % Plt Count 221 (140-440) Thou/mm3 BMP 05/29/25 11:02 Sodium 138 Potassium 3.6 Chloride 106 Carbon Dioxide 20.2 BUN 6 L Creatinine 0.6 Glucose 154 H D Calcium 8.6 Liver Function 05/29/25 Range/Units 11:02 Total Bilirubin 0.5 (0.3-1.2) mg/dL AST 17 (0-34) U/L ALT 8 L (10-49) U/L Alkaline Phosphatase 157 H (46-116) U/L Albumin 3.5 (3.5-5.0) gm/dL Urine 05/29/25 Range/Units 10:15 Urine Color Yellow (Lt Yel-Yel) Urine Clarity Hazy (Clear/Hazy) Urine pH 5.5 (5.0-7.0) Ur Specific [place] 1.023 (1.001-1.035) Urine Protein 1+ A (Neg - Trace) Urine Glucose (UA) Negative (Negative) OB Assessment & Plan Assessment and Plan (1) Normal labor and delivery: Status: Acute (2) Gestational [-induced] hypertension without significant proteinuria, unspecified trimester: Status: Acute Additional Plan Induction method: per misoprostol protocol Plan: induction, anticipate NVD and consult MD smith
[2025-05-30] MEDS: RINGERS LACTATED 1000 ML 1,000 ML 100 ML IV ×2 (15:47→21:19)
[2025-05-30] MEDS: OXYTOCIN in NS 30 units 30 UNIT/500 ML BAG IV (16:43)
--- NOTE | 2025-05-30 16:43 | PD.LDPN ---
Documentation for date of: 05/30/25 OB Labor Progress Note Pain Control Pain control: epidural Pelvic Exam Dilation (cm): 4 Effacement (%): 50 station: -3 Amniotic membrane status: Ruptured Contractions Monitor mode: Internal Contraction frequency: 3-6.5 Contraction phase: Resting Contraction intensity: Mild Status status: Category l Assessment and Plan Pitocin rate (mU/min): 1 Assessment: induction ongoing Plan OB labor note: begin Pitocin augmentation CNM Management MD Consulted (describe details below): Yes
[2025-05-30] MEDS: OXYTOCIN INJ 10 UNIT/ML VIAL IM (22:10)
[2025-05-30] MEDS: OXYTOCIN in NS 20 units 20 UNIT/1,000 ML BAG 125 UNIT IV (22:13)
[2025-05-30] MEDS: MINERAL OIL 30 ML UDC TOP (22:18)
[2025-05-30] MEDS: BENZO/LANO/ALOE (Dermoplast) 60 GM CAN 1 SPRAY TOP (22:22)
[2025-05-30] MEDS: TRANEXAMIC ACID 1,000 MG IVPB 1,000 MG/100 ML BAG 200 MG IV ×2 (22:39→23:28)
--- NOTE | 2025-05-30 22:53 | PD.LDDELS ---
Data ([place]) Data Hx Section: No : 6 Term: 1 : 0 Livin Abortions: Spontaneous & Theraputic: 4 Delivery Data ([place]) Labor Data Initiation of labor: Induction Induction/Augmentation Agent: Cytotec-PO, Cervidil, Pitocin and Artificial ROM ROM date: 05/30/25 ROM time: 16:26 Amniotic membrane rupture type: Artificial Amniotic fluid description: Clear Delivery Data EDC: 06/18/25 EDC calculated by:: LMP/early US confirmation Date of arrival to unit: 05/29/25 Time of arrival to unit: 10:19 Onset of labor date: 05/30/25 Onset of labor time: 15:33 Complete dilation date: 05/30/25 Complete dilation time: 21:42 Lyons delivery date: 05/30/25 Lyons delivery time: 22:08 Gestational age (weeks): 37 Gestational age (days): 3 Placenta delivery date: 05/30/25 Placenta delivery time: 22:13 Stage 1 total time: Labor - Stage 1 Duration 6 hours and 9 minutes Delivered by: fidel Delivery nurse: JAUN Orantes nurse: carlee rn Cane Flume Chute Operator at delivery: No Other staff at delivery: brian crumpjourneyman operator assistant Method Delivery method: Normal Vaginal Delivery Presentation: Vertex position: OA Anesthesia Type Anesthesia Type: Epidural Delivery Room Medications Delivery room medications: Pitocin 10 u IM, Pitocin 20 u IV, Cytotec 800 MS and other (TXA x2) Placenta Placenta delivery description: Spontaneous Cord blood sent to lab: Yes cord blood collection: Cord Blood Type Episiotomy Episiotomy description: None Lacerations #1: Vaginal: 1st degree (bilareral) Perineal repair Sutures used for repair: 3.0 Vicryl EBL Estimated blood loss (ml): 400 Umbilical Cord cord description: 3 Vessels and Around Body (2 loop of cord between knees) Data ([place]) Lyons Data Lyons's gender: Female Identification band number: [id number] weight (gms): 3230 g Weight (pounds): 7 lbs and 1.9 ozs Lyons length: 19.5 cm 1 minute: 8 5 minutes: 9
[2025-05-30] MEDS: IBUPROFEN TAB 400 MG TABLET 800 MG PO (23:29)
[2025-05-31] VITALS (11 sets, daily range): BP systolic 118–144; BP diastolic 65–87; PULSE 65–83; RESP 16–20; TEMP 36.5–37.2; O2SAT 95–98
[2025-05-31] MEDS: LABETALOL 100 MG TABLET 200 MG PO ×3 (05:27→21:42)
[2025-05-31 06:39] LABS: Basophils # (Auto) 0.0 Thou/mm3 (0.0-0.2); Basophils % (Auto) 0 % (0-2.5); Eosinophils # (Auto) 0.2 Thou/mm3 (0.0-0.5); Eosinophils % (Auto) 2 % (0-10); Hematocrit 30.8 % (36.0-46.0); Hemoglobin 10.5 g/dL (12.0-16.0); Immature Granulocytes Auto 0.05 Thou/mm3 (0.00-0.00); Lymphocytes # (Auto) 2.8 Thou/mm3 (1.0-4.8); Lymphocytes % (Auto) 24 % (10-50); Mean Corpuscular HGB Conc 34.1 g/dl (31.0-37.0); Mean Corpuscular Hemoglobin 24.9 pg (25.0-35.0); Mean Corpuscular Volume 73 fL (80-100); Monocytes # (Auto) 0.7 Thou/mm3 (0.0-0.8); Monocytes % (Auto) 6 % (0-12); Neutrophils # (Auto) 8.3 Thou/mm3 (1.8-7.7); Neutrophils % (Auto) 68 % (37-80); Nucleated Red Blood Cell # 0.00 Thou/mm3 (0.00-0.00); Nucleated Red Blood Cell % 0 /100 WBC (0); Platelet Count 215 Thou/mm3 (140-440); RDW Standard Deviation 38.4 fL (36.4-46.3); Red Blood Count 4.21 Miln/mm3 (4.00-5.20); White Blood Count 12.1 Thou/mm3 (3.6-11.0)
[2025-05-31] MEDS: IBUPROFEN TAB 400 MG TABLET 800 MG PO ×2 (08:18→16:03)
--- NOTE | 2025-05-31 15:52 | PD.LDPPPRG ---
Subjective Subjective Interval history: No complaints of pain. No dizziness. Denies PIH symptoms Exam Vital Signs Temp Pulse Resp BP Pulse Ox O2 Del Method 97.7 F 66 20 130/80 97 Room Air 05/31/25 07:27 05/31/25 14:56 05/31/25 07:27 05/31/25 14:56 05/31/25 07:27 05/31/25 07:27 Narrative Exam BPs are consistently 130s over 80s. Breasts are soft nontender. Abdomen soft nontender no masses. Perineum intact. No swelling. Small lochia. Uterus well in the Objective Labs 05/31/25 06:10 05/29/25 11:02 Labs: Laboratory Results - last 24 hr 05/31/25 06:10 WBC 12.1 H D RBC 4.21 Hgb 10.5 L Hct 30.8 L MCV 73 L MCH 24.9 L MCHC 34.1 RDW Std Deviation 38.4 Plt Count 215 Neut % (Auto) 68 Lymph % (Auto) 24 [place] % (Auto) 6 Eos % (Auto) 2 Baso % (Auto) 0 Neut # (Auto) 8.3 H Lymph # (Auto) 2.8 [place] # (Auto) 0.7 Eos # (Auto) 0.2 Baso # (Auto) 0.0 Immature Gran # (Auto) 0.05 H Absolute Nucleated RBC 0.00 Immature Gran % 0 Nucleated RBC % 0 Assessment & Plan Problem List (1) Normal labor and delivery: Status: Acute (2) Gestational [-induced] hypertension without significant proteinuria, unspecified trimester: Status: Acute Assessment Comment Assessment comment: 24 hr pp Plan Comment Plan Comment: Continue labetalol 200 3 times daily. Encourage ambulation. Tylenol or ibuprofen for pain. Continue prenatals. Increase fluids and rest. Discharge home in the morning Time Spent With Patient Time: Total time spent is greater than 50% in coordination of care (as documented) at patient's floor/unit and/or counseling patient:
[2025-06-01 04:00] VITALS: BP 132/85; PULSE 61; RESP 17; TEMP 36.4; O2SAT 98
--- NOTE | 2025-06-01 06:08 | PD.LDPPPRG ---
Subjective Subjective Interval history: Denies PIH complaints. Denies dizziness. Denies pain. Bonding breast-feeding Exam Vital Signs Temp Pulse Resp BP Pulse Ox O2 Del Method 97.5 F 61 17 132/85 H 98 Room Air 06/01/25 04:00 06/01/25 04:00 06/01/25 04:00 06/01/25 04:00 06/01/25 04:00 06/01/25 04:00 Narrative Exam Vital signs stable afebrile. Breasts are soft. Fundus firm below the umbilicus. Perineum intact no swelling. Small lochia. 2+ DTRs. Negative Homans' sign. Uterus well involuted Objective Labs 05/31/25 06:10 05/29/25 11:02 Labs: Laboratory Results - last 24 hr 05/31/25 06:10 WBC 12.1 H D RBC 4.21 Hgb 10.5 L Hct 30.8 L MCV 73 L MCH 24.9 L MCHC 34.1 RDW Std Deviation 38.4 Plt Count 215 Neut % (Auto) 68 Lymph % (Auto) 24 [place] % (Auto) 6 Eos % (Auto) 2 Baso % (Auto) 0 Neut # (Auto) 8.3 H Lymph # (Auto) 2.8 [place] # (Auto) 0.7 Eos # (Auto) 0.2 Baso # (Auto) 0.0 Immature Gran # (Auto) 0.05 H Absolute Nucleated RBC 0.00 Immature Gran % 0 Nucleated RBC % 0 Assessment & Plan Problem List (1) Normal labor and delivery: Status: Acute (2) Gestational [-induced] hypertension without significant proteinuria, unspecified trimester: Status: Acute Assessment Comment Assessment comment: 48 hr pp Plan Comment Plan Comment: Discharge home with baby. Continue vitamins and iron. Continue labetalol 200 p.o. twice daily. Patient can take Tylenol or ibuprofen for pain. I discussed PIH signs and symptoms. Discussed ER precautions with parameters. Discussed danger signs symptoms and signs symptoms of infection. Rest. Increase fluids. Return to office in 2 weeks for blood pressure check Time Spent With Patient Time: Total time spent is greater than 50% in coordination of care (as documented) at patient's floor/unit and/or counseling patient:
--- NOTE | 2025-06-01 06:11 | ESDS_ITS ---
DS: Providers Provider Date of admission: 05/29/25 13:01 Primary care physician: Physician No Primary/Family Admitting Provider: [place] Pina MD Attending Provider on Admission: Lesa Kay CNM Consults: 05/31/25 00:04 Referral Routine Comment: Attending Provider on DC: Lesa Kay CNM Discharging Provider: Lesa Kay CNM DS: Diagnosis Problem List Completed Was Problem List Reviewed/Reconciled?: Yes Summary/Hosp Course Brief History: 30-year-old 6 para 1 admit to labor and delivery for induction of labor because of gestational hypertension. Blood pressures have been consistently mild range for the last 2 days. Highest readings 160s over 80. Patient denies PIH signs and symptoms. She has been followed initially at Dr. Ya's office for care. Her first visit at Dr. Ya's office was at 10 weeks. And patient has a history of a 9 pound 6 ounce baby the first 1. She is O+, antibody screen negative, RPR nonreactive, rubella nonimmune, hepatitis B negative, hep C negative, HIV negative, GC and Chlamydia were negative. Normal 1 hour GTT and her A1c was 5.3. NIPT and carrier screens all negative. And her GBS is negative denies leaking or bleeding at this time Peripartum Data Delivery Method: Normal Vaginal Delivery Episiotomy Description: None Laceration Description: yes (vaginal) Time Spent with Patient Time attestation: Total time spent providing and/or coordinating discharge services: Exam Vital Signs Temp Pulse Resp BP Pulse Ox O2 Del Method 97.5 F 61 17 132/85 H 98 Room Air 06/01/25 04:00 06/01/25 04:00 06/01/25 04:00 06/01/25 04:00 06/01/25 04:00 06/01/25 04:00 Discharge Plan Plan Patient Disposition: HOME (Self Care) Patient condition on transfer: Stable Prescriptions/Referrals Prescriptions/Med Rec: New labetalol 200 mg tablet 200 mg PO BID Qty: 60 1RF Referrals: No Primary/Family,Physician [Primary Care Provider] - Patient/Caregiver Discharge Instructions Meds to Beds: No Discharge Activity: resume usual activities Print Language: Bulgarian Activity Restrictions/Additional Instructions: Discharge home with baby today. Continue labetalol 200 mg twice daily. Continue vitamins. Tylenol or ibuprofen for pain. Discussed danger signs and symptoms and signs symptoms of infection. Discussed ER precautions with parameters. Discussed PIH signs and symptoms and precautions. Increase fluids and rest return in 2 weeks for blood pressure check Stand Alone Forms: Hermila Award Info., Patient Portal Info Letter Discharge Order Discharge Orders: Discharge (Routine); Ordered 06/01/25 Ordered By: Lesa Kay Planned Discharge Date 06/01/25
[2025-06-01 07:14] VITALS: BP 121/77; PULSE 61
[2025-06-01] MEDS: LABETALOL 100 MG TABLET 200 MG PO (07:14)
[2025-06-01 08:40] VITALS: BP 121/77; PULSE 62; RESP 18; TEMP 36.8; O2SAT 98
== END 2025-06-01 13:57 | disposition home or self-care (01) | DRG 560 ==
LOC: S4SX 05-30 12:07 → S4NX 05-31 01:09
PROVIDERS: Advanced Practice Midwife; Admitting Provider Specialist; Visit Provider Obstetrics & Gynecology
DX: O13.4 Gestational [pregnancy-induced] hypertension without significant proteinuria, complicating childbirth (principal); Z37.0 Single live birth; Z3A.37 37 weeks gestation of pregnancy; O70.0 First degree perineal laceration during delivery; Z23 Encounter for immunization
CPT/HCPCS: 36415; 59025; 59409; 76805; 80053; 81001; 82570; 83615; 84156; 84550; 85025; 85384; 85610; 85730; 86780; 86850; 86900; 86901; 87086; 90707; 94762; J2274; J2590; J2795; J3010; J3490; J7120; S0191; A9270; J2270

== ENCOUNTER 2025-06-13 09:47 | Outpatient (AMB) | payer MEDICAID, SELFPAY ==
--- NOTE | 2025-06-13 10:13 | AMBOBPPN_ITS ---
Vital Signs 06/13/25 10:14 Height 1.65 m Height Method Stated Weight 117.707 kg Weight Measurement Method Standing Scale BMI 43.2 BP 120/81 Blood Pressure Source Automatic Cuff Blood Pressure Location Right Upper Arm Position Sitting Respiration 17 Pulse 58 L Pulse Source Monitor Temp 97.5 F Temp Source Temporal Artery Scan Pulse Oximetry (%) 98 Oxygen Delivery Method Room Air Allergies/Home Meds Allergies & Medications Allergies No Known Allergies Allergy (Verified 06/13/25 10:15) Medication Reconciliation docusate sodium 100 mg capsule (Stool Softener) 100 mg PO QDAY 30 days #30 caps 06/01/25 [Rx Confirmed 06/13/25] labetalol 200 mg tablet 200 mg PO BID #60 tabs 06/01/25 [Rx Confirmed 06/13/25] Intake Visit Data Collection New Patient or Established: Established Patient (seen at [facility] within 3 years) Reason for Visit:: 2WEEK PP Seen by Clinical Staff ONLY (RN/MA): No Assistant Merchandise Manager Required: No Do You Feel Safe at Home: Yes Authorities Contacted: N/A PCP or OBGYN visit in last 3 months: Yes Date of Last PCP or OBGYN visit: 06/01/25 Hx Now: No Are you currently on any form of Control: No Pain Present Currently: No Pain Scale Used: Lee-Teresa/Numerical Pain scale:: 0 Smoking Status Smoking Status: Never smoker PATHOLOGIST ASSISTANT: Past Medical History Past Medical History: No Hx Neurological Disorders, No Hx Cardiac Disorders, No Hx Cancer, No Hx Blood Disorders, No Hx Gastrointestinal Disorders, No Hx Renal Disease, No Hx Diabetes Mellitus Type 1 and No Hx Diabetes Mellitus Type 2 Questionnaires Covid-19 Vaccine Questionnaire Has patient been vacinated for Covid-19 Have you been vacinated for Covid-19: No Social History Living Situation History Marital Status: Lives With: Family Housing: Apartment Tobacco History Smoking Status: Never smoker Second Hand Smoke Exposure: No Alcohol History Alcohol Intake: Never Alcohol Intake Frequency: holidays/special occasions only Domestic Abuse History Do You Feel Safe at Home: Yes EPDS - PP Depression Screening [place] Pospartum Depression Screen I have been able to laugh and see the funny side of things: (0) As much as I always could I have looked forward with enjoyment to things: (0) As much as I ever did I have blamed myself unnecessarily when things went wrong: (0) No, never I have been anxious or worried for no good reason: (0) No, not at all I have felt scared or panicky for no very good reason: (0) No, not at all Things have been getting on top of me: (0) No, I have been coping as well as e jose I have been so unhappy that I have had difficulty sleeping: (0) No, not at all I have felt sad or miserable: (0) No, not at all I have been so unhappy that I have been crying: (0) No, never The thought of harming myself has occurred to me: (0) Never EPDS completed yes Care OB Visit Log OB Flowsheet Initial Weight: Not Recorded Date -?-?-?-?-?-?-?-?-?-?-?-?- EGA Weight BP Alb Glu CTX Pres Fundal ht FHR Mov Dilation Station Effacement Hx Notes Visit Note 04/18/25 -?-?-?-?-?-?-?-?-?-?-?-?- 31w 2d 124.795 kg 135/86 absent cephalic 33 14 5 active 30 yo . sure dates. EDC by LMP:06/07. elevated BMI, last mfm was 6/3,EFW: 4lb 1/2, normal anatomy. no PTL complaints, no VB,no leaking, report good FM+ 30 yo . sure dates. EDC by LMP:06/07. elevated BMI, last mfm was 6/3,EFW: 4lb 1/2, normal anatomy. no PTL complaints, no VB,no leaking, report good FM+, TDAP given review fkv bid, increase fluid, discuss PTL precaution, schedule week NST/BPP. call for sono results NV review fkc bid, increase flu id, discuss PTL precaution, schedule week NST/BPP. call for sono results NV 05/02/25 -?-?-?-?-?-?-?-?-?-?-?-?- 33w 2d 125.305 kg 132/84 absent cephalic 33 14 5 active fetus active, no PTL complaints. denies LOF/Bleeding,UC. MFM f/u 05/29 keep appt with mfm for f/u, week NST/BPP pending, fkc bid, gbs nv, discuss ptl precaution, rtc 2 week obc 05/28/25 -?-?-?-?-?-?-?-?-?-?-?-?- 37w 0d 127.176 kg 143/89 occasional cephalic 37 145 active 1 -3 50 denies PIH s/s, reports good fm, sve: soft/1/L/post, occ uc, no vb,no LOF. BPP 06/22 today, N ST reactive. discuss labor pr ecaution, fkc bid. review PIH s/s and precaution. fkc bid. discuss danger s/s. consult with OB re BP, to [facility] 05/29, repeat BP, IOL if BP are elevated. discuss with patient. OBC 1 week ALMAS Calculator Estimated Delivery Date Method Current WG Current Estimate 06/18/25 Ultrasound #1 39w 2d Other Estimates 06/07/25 LMP (Certain) 40w 6d Notes Visit Date: 04/18/25 Last Updated by: Lesa Kay, CNRob 30 yo , lmp 08/31/24. edc 06/07/25. sure date(final). sono 01/08/25: 17w: 06/14/25. sono 02/08/25: 21.5 EDC 06/16/25. MFM sono: WNL. EFW: 58%, O+,abs- ,rpr::nr, rub:NI, hbsag-hiv-,hc-, gc/ct-, AFP/NIPT/carrier screen-, 1hr gtt:WNL, A1:5.3, 6/4: sched NST/BPP HPI Interval History: 30-year-old 6 para 2 for 2-week . Patient had a vaginal delivery May 30, 2025. Patient was induced at 37 weeks 2 days for gestational hypertension. And patient was discharged home on labetalol 200 twice daily. Denies any headaches or PIH complaints at this time. Patient had a baby girl weighing 7 pounds 2. She is breast and bottlefeeding. was uncomplicated. Reports good help at home sibling is adjusting and father the baby is involved. Patient reports that she is tired. Was or delivery considered high risk: Yes Delivery type: vaginal Was labor induced: yes (gestational hypertention) Gestational age at delivery (weeks): 37.2 Delivery date: 05/30/25 Delivering provider: mar kay Delivery complications: No Is patient infant: Yes Is patient sexually active: No Contraception planned: unsure Review of Systems Review of Systems ROS limited to current PATHOLOGIST ASSISTANT complaints: Yes Exam Narrative Physical exam: Normal heart rate and rhythm. Lungs clear no wheezes. Abdomen is soft nontender. Uterus well involuted. Perineum is intact no lacerations. No swelling. Small lochia. Negative Homans' sign. 2+ DTRs. No edema no swelling. Breasts are soft General Limitations: no limitations General Appearance: alert, in no apparent distress, comfortable, cooperative, healthy appearing, well developed and well groomed Head Head exam: atraumatic, normocephalic and normal inspection Neck Neck exam: Present normal inspection, full ROM and trachea midline Resp Respiratory exam: Present normal lung sounds bilaterally Card Cardiovascular exam: Present regular rate, normal rhythm and normal heart sounds Abdominal Abdominal exam: Present soft and normal bowel sounds External exam: Present normal external exam (perineum intact. well healed, no s/s infection. small lochia) Bimanual exam: Present normal bimanual exam Extremities Extremities exam: Present normal inspection and full ROM Psych Psychiatric exam: Present normal affect and normal mood Office Procedures OB Clinic LOC & Office Proc's Nursing/Assessment Patient Status: Established Patient OB Clinic Nursing Assessment: Medication Reconciliation, Update PMH in EMR and Vital Signs OB Clinic Coordination of Care: Complex Care and Chronic Disease 1-5, Consent,records obtained, informed consent, Education Simp Pt/Fam and Staff clarify orders Established Patient Charge Established Patient Point Assignment: 85 Antepartum Initial or Follow-up Antepartum Initial Visit: Yes Assessment & Plan Diagnosis / Problem List (1) 2 weeks follow-up: Status: Acute (2) Gestational [-induced] hypertension without significant proteinuria, unspecified trimester: Status: Acute Plan Continue labetalol 200 twice daily. Discussed PIH precautions and signs symptoms. Tylenol for headache. Increase fluids. Continue prenatals. Discussed latching and breast-feeding positions. I offered contraception today. Patient declined but she will look at her options and will discuss when I see her in 4 weeks. And I advised patient to make an appointment in our area with her family practice doctor for her blood pressure. Return in 3 weeks for visit Care Reviewed delivery summary and any complications: Yes Uterus involuted to: 3 below umb Perineal / incision healing noted: Yes Screened for depression: Yes Depression counseling provided: No Discussed family planning & contraception: Yes Contraception planned: unsure Counseling on safe resumption of sexual activity: Yes Counseling on gradual excercise: Yes Discussed and concerns (describe), provided support: Yes Referred to metabolic specialist: No Counseled on good nutrition, hydration, and self care: Yes Reviewed vaccine status: No care discussed; questions answered: feeding Follow up: routine/prn Additional counseling & anticipatory guidance provided: rtc 3 week PP visit
[2025-06-13 10:14] VITALS: BP 120/81; PULSE 58; RESP 17; TEMP 36.4; O2SAT 98; BMI 43.2
== END 2025-06-13 10:37 | disposition home or self-care (01) ==
LOC: HODSOBC 09:47
PROVIDERS: Supervising Provider Advanced Practice Midwife; Visit Provider Advanced Practice Midwife
DX: Z39.2 Encounter for routine postpartum follow-up (principal); O13.5 Gestational [pregnancy-induced] hypertension without significant proteinuria, complicating the puerperium
CPT/HCPCS: 59425; Z1038

== ENCOUNTER 2025-07-11 10:18 | Outpatient (AMB) | payer MEDICAID, SELFPAY ==
[2025-07-11 10:40] VITALS: BP 121/85; PULSE 62; RESP 16; TEMP 36.8; O2SAT 98; BMI 44.0
--- NOTE | 2025-07-11 10:40 | AMBOBPPN_ITS ---
Vital Signs 07/11/25 10:40 Height 1.65 m Height Method Stated Weight 119.862 kg Weight Measurement Method Standing Scale BMI 44.0 BP 121/85 H Blood Pressure Source Automatic Cuff Blood Pressure Location Right Upper Arm Position Sitting Respiration 16 Pulse 62 Pulse Source Monitor Temp 98.2 F Temp Source Oral Pulse Oximetry (%) 98 Oxygen Delivery Method Room Air Allergies/Home Meds Allergies & Medications Allergies No Known Allergies Allergy (Verified 07/11/25 10:41) Medication Reconciliation labetalol 200 mg tablet 200 mg PO BID #60 tabs 06/01/25 [Rx Confirmed 07/11/25] Intake Visit Data Collection New Patient or Established: Established Patient (seen at [facility] within 3 years) Reason for Visit:: Seen by Clinical Staff ONLY (RN/MA): No Home Help Aide Required: No Do You Feel Safe at Home: Yes Authorities Contacted: N/A PCP or OBGYN visit in last 3 months: Yes Date of Last PCP or OBGYN visit: 06/13/25 Hx Now: No Are you currently on any form of Control: No Pain Present Currently: No Pain Scale Used: Lee-Teresa/Numerical Pain scale:: 0 Smoking Status Smoking Status: Never smoker HEALTH CARE ATTORNEY: Past Medical History Past Medical History: No Hx Neurological Disorders, No Hx Cardiac Disorders, No Hx Cancer, No Hx Blood Disorders, No Hx Gastrointestinal Disorders, No Hx Renal Disease, No Hx Diabetes Mellitus Type 1 and No Hx Diabetes Mellitus Type 2 Questionnaires Covid-19 Vaccine Questionnaire Has patient been vacinated for Covid-19 Have you been vacinated for Covid-19: Yes Social History Living Situation History Lives With: Family Housing: Apartment Tobacco History Smoking Status: Never smoker Second Hand Smoke Exposure: No Alcohol History Alcohol Intake: Never Alcohol Intake Frequency: holidays/special occasions only Domestic Abuse History Do You Feel Safe at Home: Yes EPDS - PP Depression Screening [place] Pospartum Depression Screen I have been able to laugh and see the funny side of things: (0) As much as I always could I have looked forward with enjoyment to things: (0) As much as I ever did I have blamed myself unnecessarily when things went wrong: (0) No, never I have been anxious or worried for no good reason: (0) No, not at all I have felt scared or panicky for no very good reason: (0) No, not at all Things have been getting on top of me: (0) No, I have been coping as well as ever I have been so unhappy that I have had difficulty sleeping: (0) No, not at all I have felt sad or miserable: (0) No, not at all I have been so unhappy that I have been crying: (0) No, never The thought of harming myself has occurred to me: (0) Never Total Score: EPDS Score: Referral is indicated for score of 9 or more, suicidal, or if provider believes patient is depressed regardless of score.: 0 EPDS completed yes Care OB Visit Log OB Flowsheet Initial Weight: Not Recorded Date -?-?-?-?-?-?-?-?-?-?-?-?- EGA Weight BP Alb Glu CTX Pres Fundal ht FHR Mov Dilation Station Effacement Hx Notes Visit Note 04/18/25 -?-?-?-?-?-?-?-?-?-?--?-?- 31w 2d 124.795 kg 135/86 absent cephalic 33 14 5 active 30 yo . sure dates. EDC by LMP:06/07. elevated BMI, last mfm was 6/3,EFW: 4lb 1/2, normal anatomy. no PTL complaints, no VB,no leaking, report good FM+ 30 yo . sure dates. EDC by LMP:06/07. elevated BMI, last mfm was 6/3,EFW: 4lb 1/2, normal anatomy. no PTL complaints, no VB,no leaking, report good FM+, TDAP given review fkv bid, increase fluid, discuss PTL precaution, schedule week NST/BPP. call for sono results NV review fkc bid, increase flu id, discuss PTL precaution, schedule week NST/BPP. call for sono results NV 05/02/25 -?-?-?-?-?-?-?-?-?-?-?-?- 33w 2d 125.305 kg 132/84 absent cephalic 33 14 5 active fetus active, no PTL complaints. denies LOF/Bleeding,UC. MFM f/u 05/29 keep appt with mfm for f/u, week NST/BPP pending, fkc bid, gbs nv, discuss ptl precaution, rtc 2 week obc 05/28/25 -?-?-?-?-?-?-?-?-?-?-?-?- 37w 0d 127.176 kg 143/89 occasional cephalic 37 145 active 1 -3 50 denies PIH s/s, reports good fm, sve: soft/1/L/post, occ uc, no vb,no LOF. BPP 06/22 today, NST reactive. discuss labor pr ecaution, fkc bid. review PIH s/s and precaution. fkc bid. discuss danger s/s. consult with OB re BP, to [facility] 05/29, repeat BP, IOL if BP are elevated. discuss with patient. OBC 1 week ALMAS Calculator Estimated Delivery Date Method Current WG Current Estimate 06/18/25 Ultrasound #1 43w 2d Other Estimates 06/07/25 LMP (Certain) 44w 6d Notes Visit Date: 04/18/25 Last Updated by: Lesa Kay CNM 30 yo , lmp 08/31/24. edc 06/07/25. sure date(final). sono 01/08/25: 17w: 06/14/25. sono 02/08/25: 21.5 EDC 06/16/25. MFM sono: WNL. EFW: 58%, O+,abs- ,rpr::nr, rub:NI, hbsag-hiv-,hc-, gc/ct-, AFP/NIPT/carrier screen-, 1hr gtt:WNL, A1:5.3, 6/4: sched NST/BPP HPI Interval History: 30-year-old 6 para 2 for 6-week . Patient had a vaginal delivery May 30, 2025. Baby girl weighing 7 pounds 2. She was induced at 37 weeks for elevated blood pressure patient was discharged home on labetalol 200 twice daily. She is doing well. Denies any signs symptoms of preeclampsia including headache and blurred vision. Patient is breast-feeding. Patient is happy. No complaints of depression. She has good help at home. Will start low risk patient has an appointment with her primary care for chronic hypertension in a week. Patient is not sexually active yet. They plan to use condoms. Was or delivery considered high risk: Yes Delivery type: vaginal Was labor induced: yes (gest HTN) and medically indicated Gestational age at delivery (weeks): 37.2 Delivery date: 05/30/25 Delivering provider: mar kay Delivery complications: No Is patient infant: Yes Is patient sexually active: No Contraception planned: condom Review of Systems Review of Systems ROS limited to current HEALTH CARE ATTORNEY complaints: Yes Exam Narrative Physical exam: Normal heart rate and rhythm. Lungs clear no wheezes. Abdomen is soft nontender. Uterus well involuted. Perineum is intact no lacerations. No swelling. Small lochia. Negative Homans' sign. 2+ DTRs. No edema no swelling. Breasts are soft General Limitations: no limitations General Appearance: alert, in no apparent distress, comfortable, cooperative, healthy appearing, well developed and well groomed Head Head exam: atraumatic, normocephalic and normal inspection Resp Respiratory exam: Present normal lung sounds bilaterally Card Cardiovascular exam: Present regular rate, normal rhythm and normal heart sounds Abdominal Abdominal exam: Present soft and normal bowel sounds Extremities Extremities exam: Present normal inspection and full ROM Psych Psychiatric exam: Present normal affect and normal mood Office Procedures OB Clinic LOC & Office Proc's Nursing/Assessment Patient Status: Established Patient OB Clinic Nursing Assessment: Medication Reconciliation, Update PMH in EMR and Vital Signs OB Clinic Coordination of Care: Education Complex Pt/Fam, Consent,records obtained, informed consent, Lab and Imaging orders, Results/Orders obtained and Staff clarify orders Established Patient Charge Established Patient Point Assignment: 85 Post Follow-up Visit Post Follow up Visit: Yes Assessment & Plan Diagnosis / Problem List (1) 6 weeks follow-up: Status: Acute Plan Discussed compliance with condoms and effectiveness. Contraceptive options were offered. Continue to take vitamins. Increase fluids. Reviewed latching and breast-feeding positions. Keep follow-up appointment in a week with primary care for evaluation of hypertension. And patient will return in a year for Pap Care Reviewed delivery summary and any complications: Yes Uterus involuted to: 4 below Perineal / incision healing noted: Yes Screened for depression: Yes Depression counseling provided: No Discussed family planning & contraception: Yes Contraception planned: condom Counseling on safe resumption of sexual activity: Yes Counseling on gradual excercise: Yes Discussed and concerns (describe), provided support: Yes Referred to drug regulatory affairs specialist: No Counseled on good nutrition, hydration, and self care: Yes Reviewed vaccine status: No Infant care discussed; questions answered: feeding and sleep Follow up: routine/prn Additional counseling & anticipatory guidance provided: discuss diet and weight. condom with good compliance
== END 2025-07-11 11:43 | disposition home or self-care (01) ==
LOC: HODSOBC 10:18
PROVIDERS: Supervising Provider Advanced Practice Midwife; Visit Provider Advanced Practice Midwife
DX: Z39.2 Encounter for routine postpartum follow-up (principal); Z39.1 Encounter for care and examination of lactating mother
CPT/HCPCS: 59430